=== PATIENT | male | born 1935 | race Caucasian/White ===

== ENCOUNTER 2018-12-02 06:25 | Inpatient (IN) | payer MEDICARE, OTHER ==
[~2018-12-02] VITALS: Ht 188 cm; Wt 108.8 kg
[~2018-12-02 06:25] MED LIST: ALBU90OI INH; AMOCLA875 PO; ASPI325 PO; ASPI81CH PO; ASPI81EC PO; BENAML20/5 PO; BREO ELLIPTA 11 EACH INH; CEPH500 PO; CIPR500 PO; CLOP75 PO; CRESTOR PO; Cilostazol50 MG PO; DICL25ER; DOXA4 PO; EPLE25 PO; FINA5 PO; FURO20 PO; FURO40 PO; HYDCHL12.5 PO; METF500 PO; METFORMIN 1000MG PO; METR500 PO; Metformin HCl1000 MG PO; NEBI10 PO; OXYC5 PO; RABE20 PO; ROSU10TA PO; SULTRIDS PO; TAMS.4ER PO; TIOT18 INH; TORSE20 PO; VALS80 PO; VALSARTAN-HCTZ1 EAC4 PO
[2018-12-02] MEDS ORDERED: LOSARTAN-HCTZ1 EAC2 PO (06:47)
[2018-12-02] MEDS ORDERED: ASPIRIN (06:48)
[2018-12-02 07:10] LABS: BASOPHILS ABSOLUTE AUTO 0.06 K/mm3 (0.00-0.23); BASOPHILS PERCENT AUTO 1 % (0-2); EOSINOPHILS ABSOLUTE AUTO 0.19 K/mm3 (0.00-0.68); EOSINOPHILS PERCENT AUTO 4 % (0-6); Hematocrit 39.6 % (37.0-53.0); Hemoglobin 13.2 g/dL (13.5-17.5); IMMATURE GRAN ABSOLUTE AUTO 0.01 K/mm3 (0.00-0.10); IMMATURE GRAN PERCENT AUTO 0 % (0-1); LYMPHOCYTES ABSOLUTE AUTO 1.15 K/mm3 (0.84-5.20); LYMPHOCYTES PERCENT AUTO 21 % (21-46); MONOCYTES PERCENT AUTO 15 % (4-13); Mean Corpuscular HGB 31.7 pg (26.0-34.0); Mean Corpuscular HGB Conc 33.3 g/dL (31.5-36.5); Mean Corpuscular Volume 95 fL (80-100); NEUTROPHILS ABSOLUTE AUTO 3.22 K/mm3 (1.96-9.15); NEUTROPHILS PERCENT AUTO 59 % (41-73); RDW Coefficient Variation 13.9 % (11.7-14.2); RDW Standard Deviation 48.7 fL (35.1-46.3); Red Blood Cell Count 4.16 M/mm3 (4.30-5.90); White Blood Cell Count 5.43 K/mm3 (4.00-11.30)
[2018-12-02 07:17] LABS: Mean Platelet Volume 9.8 fL (9.1-12.4); Platelet Count 167 K/mm3 (150-400)
[2018-12-02 08:04] LABS: Troponin I 0.153 ng/mL (0.000-0.040)
[2018-12-02 08:05] LABS: Albumin, Blood 3.6 g/dL (3.4-5.0); Albumin/Globulin Ratio 1.2 (0.8-1.8); Bilirubin, Total 0.4 mg/dL (0.1-1.0); Bun/Creatinine Ratio 21.7 (12.0-20.0); Calcium, Blood 8.9 mg/dL (8.5-10.1); Creatinine, Blood 1.38 mg/dL (0.60-1.20); Potassium, Blood 4.2 mmol/L (3.5-5.5); Total Protein, Blood 6.6 g/dL (6.4-8.2)
[2018-12-02] MEDS ORDERED: Bystolic10 MG PO (12:44)
[2018-12-02] MEDS ORDERED: Voltaren100 GM TOP (13:07)
--- NOTE | 2018-12-02 15:50 | NUR ---
PT ADMITTED PT ADMITTED AT 1520. PT IN STABLE CONDTION WITH VSS. PT ORIENTED TO ROOM & CALL LIGHT IN REACH. WILL CONTINUE TO MONITOR UNTIL TURNOVER IS COMPLETE.
--- NOTE | 2018-12-02 16:52 | NUR ---
SHIFT SUMMARY NO CHANGES IN ASSESSMENT AT THIS TIME. PT DENIES CP AT THIS TIME. PT SEEN BY DR. CUNNINGHAM. ANGIO SCHEDULED FOR TOMORROW MORNING. PT TO BE NPO AT MIDNIGHT. VSS. WILL CONTINUE TO MONITOR UNTIL TURNOVER IS COMPLETE.
--- NOTE | 2018-12-02 17:18 | NUR ---
COREG DOSE CHANGE DR. SUTHERLAND NOTIFIED THAT COREG DOSE OF 6.25 WAS GIVEN BEFORE THE NEW ORDER OF 3.125. STATED THAT THIS WAS OK & TO START THE NEW DOSEAGE IN THE MORNING. WILL CONTINUE TO MONITOR.
[2018-12-02 17:53] LABS: International Normalized Ratio 1.04
--- NOTE | 2018-12-03 05:23 | NUR ---
SUMMARY: 83 Y/O MALE RESTED COMFORTABLY ALL EVENING. HEPARIN GTT TURNED OFF AT [address] CUNNINGHAM. PT SCHEDULED FOR 0700 ANGIOGRAM TODAY. PT NPO SINCE MIDNIGHT. PT HAPPY AND COOPERATIVE. PT DENIES NAUSEA OR PAIN. PTS BED IN LOW POSITION, CALL LIGHT AT SIDE.
--- NOTE | 2018-12-03 07:03 | NUR ---
5046 PT DEPARTED UNIT VIA WHEELCHAIR WITH AT SIDE AND SURGICAL TEAM. PERSONAL ITEMS LEFT IN ROOM.
--- NOTE | 2018-12-03 07:28 | NUR ---
REPORT CALLED TO ICU REPORT CALLED TO ICU NURSE, LUCIA. LUCIA STATED NO FURTHER QUESTIONS ABOUT PT CARE. PT BELONGINGS WILL BE DELIVERED TO NEW ROOM. PT BRIGETTEY IN SINTER FEEDER.
[2018-12-03 09:01] LABS: Anion Gap 7 mmol/L (6-16); Blood Urea Nitrogen 26 mg/dL (8-24); Bun/Creatinine Ratio 24.1 (12.0-20.0); CO2, Blood 27 mmol/L (21-32); Calcium, Blood 8.6 mg/dL (8.5-10.1); Chloride, Blood 105 mmol/L (98-108); Creatinine, Blood 1.08 mg/dL (0.60-1.20); Glomerular Filtration Rate >60 (60-); Glucose, Blood 116 mg/dL (70-99); Sodium, Blood 139 mmol/L (136-145)
--- NOTE | 2018-12-03 09:46 | NUR ---
PATIENT LINEN ROOM HOUSEPERSON LIGHT, VERBALIZED NEED TO VOID, ASSISTED TO STAND AT SIDE OF BED, PATIENT NEEDED CONTINUOUS REMINDER TO NOT USE RIGHT HAND/ARM D/T T-BAND, PATIENT ABLE TO VOID IN URINAL WITH ASSIST, RETURNED TO BED AND REPOSITIONED, CALL LIGHT IN REACH, LUCIA RN, ATTENDING TO THIS PATIENT NOTIFIED.
--- NOTE | 2018-12-03 10:15 | NUR ---
0820 PT IN FROM [facility]. VS NOTED WITH HR 48+ AND SBP ELEVATED NOTED. PT CAUTIONED RE R TR SITED WHICH IS STABLE. PT DENIES CHEST PAIN OR SOB OR PAIN. PT A/O AND SIPS OF LIQUID W/O DISTRESS.
[2018-12-03] MEDS ORDERED: CARV3.125 PO (15:16)
[2018-12-03] MEDS ORDERED: AMLO5 PO (15:16)
[2018-12-03] MEDS ORDERED: LOSA50 PO (15:17)
--- NOTE | 2018-12-03 16:17 | NUR ---
1550 PT TR BAND WAS DEFLATED AT APPROX 1245 AND SITE STABLE. AT APPROX 1415 SITE WAS CLEANED AND OPSITE DSG APPLIED ALONG WITH WRIST BOARD. 1550 PT WAS DISCHARGED TO [facility] AFTER IV'S WERE D/C. TR BAND SITE STABILLITY CONFIRMED, INSTRUCTIONS GIVEN, ALL NEW RX'S CALLED TO [facility]. PT PERSONAL BELONGINGS GATHERED AND PT DENIES ANY PAIN OR DISTRESS. WAS ALSO GIVEN INSTRUCTIONS.
--- NOTE | 2018-12-03 17:39 | NUR ---
Spiritual Care inital visit: I met with Barry and his at bedside. He made little jokes and told me he was happy to be "getting outta here." His appears to be a good support. I spoke to them about the purpose and benefits of having an Advanced Directive on file. Afterwards, his admitted this would be a useful tool for squelching possible disagreements between their adult children if/when either of them near end-of-life. She took the information packet and plans on completing this once they get home. Prayer for continued health provided at bedside. Barry is being discharged this afternoon.
== END 2018-12-03 15:50 | disposition home or self-care (01) | DRG 282 ==
LOC: ER 06:25 → MEDS 06:26 → ERHOLD 06:26 → MEDS 15:15 → ICUW 15:17 → MEDS 22:58 → ICUW 12-03 07:17
PROVIDERS: Emergency Medicine; Internal Medicine Cardiovascular Disease; ADMIT Hospitalist
PROC: B2111ZZ Fluoroscopy of Multiple Coronary Arteries using Low Osmolar Contrast (ICD-10-PCS; principal; 2018-12-03)
PROC: 4A023N7 Measurement of Cardiac Sampling and Pressure, Left Heart, Percutaneous Approach (ICD-10-PCS; 2018-12-03)
DX: I21.4 Non-ST elevation (NSTEMI) myocardial infarction (principal); J44.9 Chronic obstructive pulmonary disease, unspecified; E11.51 Type 2 diabetes mellitus with diabetic peripheral angiopathy without gangrene; N40.0 Benign prostatic hyperplasia without lower urinary tract symptoms; I10 Essential (primary) hypertension; Z79.82 Long term (current) use of aspirin; Z79.84 Long term (current) use of oral hypoglycemic drugs; Z95.5 Presence of coronary angioplasty implant and graft; K21.9 Gastro-esophageal reflux disease without esophagitis; I27.20 Pulmonary hypertension, unspecified; I44.0 Atrioventricular block, first degree
CPT/HCPCS: 36415; 71046; 80048; 80053; 82947; 83880; 84484; 85025; 85610; 85730; 93005; 93010; 93306; 93458; 93571; 96372; 99152; 99153; 99285-25; C1769; C1887; C1894; G0378; J0360; J1644; J1650; J2250; J3010; J7030; Q9967

== ENCOUNTER 2019-06-27 13:08 | Inpatient (IN) | payer MEDICARE, OTHER ==
[~2019-06-27] VITALS: Ht 188 cm; Wt 112.7 kg
[~2019-06-27 13:08] MED LIST changes: -ALBU90OI INH; +ASPIRIN; +Bystolic10 MG PO; +CARV3.125 PO; -CLOP75 PO; -Cilostazol50 MG PO; -EPLE25 PO; +LOSARTAN-HCTZ1 EAC2 PO; -Metformin HCl1000 MG PO; +Voltaren100 GM TOP
[2019-06-27 14:24] LABS: BASOPHILS ABSOLUTE AUTO 0.06 K/mm3 (0.00-0.23); BASOPHILS PERCENT AUTO 0 % (0-2); EOSINOPHILS PERCENT AUTO 0 % (0-6); Hematocrit 37.3 % (37.0-53.0); Hemoglobin 12.6 g/dL (13.5-17.5); IMMATURE GRAN ABSOLUTE AUTO 0.27 K/mm3 (0.00-0.10); IMMATURE GRAN PERCENT AUTO 1 % (0-1); LYMPHOCYTES ABSOLUTE AUTO 0.46 K/mm3 (0.84-5.20); LYMPHOCYTES PERCENT AUTO 2 % (21-46); MONOCYTES ABSOLUTE AUTO 2.27 K/mm3 (0.16-1.47); MONOCYTES PERCENT AUTO 11 % (4-13); Mean Corpuscular HGB 31.2 pg (26.0-34.0); Mean Corpuscular HGB Conc 33.8 g/dL (31.5-36.5); Mean Corpuscular Volume 92 fL (80-100); Mean Platelet Volume 9.1 fL (9.1-12.4); NEUTROPHILS ABSOLUTE AUTO 17.85 K/mm3 (1.96-9.15); NEUTROPHILS PERCENT AUTO 85 % (41-73); Platelet Count 190 K/mm3 (150-400); RDW Coefficient Variation 13.8 % (11.7-14.2); RDW Standard Deviation 46.8 fL (35.1-46.3); Red Blood Cell Count 4.04 M/mm3 (4.30-5.90); White Blood Cell Count 20.91 K/mm3 (4.00-11.30)
[2019-06-27 14:48] LABS: Albumin, Blood 3.7 g/dL (3.4-5.0); Albumin/Globulin Ratio 1.1 (0.8-1.8); Bilirubin, Total 1.3 mg/dL (0.1-1.0); Calcium, Blood 8.7 mg/dL (8.5-10.1); Creatinine, Blood 1.27 mg/dL (0.60-1.20); Globulin, Blood 3.5 g/dL (2.2-4.0); Potassium, Blood 3.3 mmol/L (3.5-5.5); Total Protein, Blood 7.2 g/dL (6.4-8.2)
[2019-06-27 15:10] LABS: Source, Urine Clean Catch
[2019-06-27 15:18] LABS: Bilirubin, Urine Neg (Neg); Blood, Urine 4+ (Neg); Glucose Qualitative, Urine Neg (Neg); Ketones, Urine 2+ (Neg); Leukocyte Esterase, Urine 3+ (Neg); Nitrite, Urine Pos (Neg); Protein, Urine 2+ (Neg); Urobilinogen, Urine NORM (Normal)
[2019-06-27 15:28] LABS: Appearance, Urine Hazy (Clear); Color, Urine Yellow (P-Yellow)
[2019-06-27 15:30] LABS: White Blood Cells, Urine 25-50 /hpf (0-5)
[2019-06-27 15:31] LABS: Bacteria Many /hpf; Squamous Epithelial Cells Few /hpf (Few)
[2019-06-27] MEDS ORDERED: RABE20 PO (16:21)
[2019-06-27] MEDS ORDERED: EPLE25 PO (16:21)
[2019-06-27] MEDS ORDERED: ROSU10TA PO (16:21)
[2019-06-27] MEDS ORDERED: CLOP75 PO (16:22)
[2019-06-27] MEDS ORDERED: AMLO5 PO (16:22)
[2019-06-27] MEDS ORDERED: CHLO25B PO (16:23)
[2019-06-27] MEDS ORDERED: TOPROL XL25 MG PO (16:23)
[2019-06-27] MEDS ORDERED: Doxazosin Mesyla4 MG PO (16:24)
[2019-06-27] MEDS ORDERED: ALBU90OI INH (16:25)
[2019-06-27] MEDS ORDERED: METF500C PO (16:25)
[2019-06-27] MEDS ORDERED: LOSA50 PO (16:26)
[2019-06-27] MEDS ORDERED: Cilostazol50 MG PO (16:26)
[2019-06-27] MEDS ORDERED: Aspir 8181 MG PO (16:28)
--- NOTE | 2019-06-28 04:11 | NUR ---
SHIFT SUMMARY GULSHAN GOT HERE LAST NIGHT AFTER GOING TO THE ER YESTERDAY. HE WAS DIAGNOSED WITH SEPSIS. HE CAME UP HERE LAST NIGHT WITH A FEVER AND CHILLS. HIS FEVER HAD GOTTEN TO 101 DEGREES FAHRENHEIT THEN FLUCTUATED BETWEEN 99-101 DEGREES. HIS CHILLS WERE VERY PRONOUNCED AND HE KEPT ASKING FOR WARMED BLANKETS. HE RECEIVED 2 TYLENOL (650 MG) AND HIS FEVER WENT DOWN TO 97.8. HE IS MUCH MORE COMFORTABLE NOW AND APPEARS TO BE SLEEPING. HE WEARS A CPAP AND HAD TO BORROW ONE FROM [facility] HE LEFT HIS AT HOME. HE HAS BEEN GETTING IV FLUIDS.
[2019-06-28 05:17] LABS: BASOPHILS ABSOLUTE AUTO 0.05 K/mm3 (0.00-0.23); BASOPHILS PERCENT AUTO 0 % (0-2); EOSINOPHILS PERCENT AUTO 0 % (0-6); Hematocrit 34.4 % (37.0-53.0); Hemoglobin 11.5 g/dL (13.5-17.5); IMMATURE GRAN ABSOLUTE AUTO 0.36 K/mm3 (0.00-0.10); IMMATURE GRAN PERCENT AUTO 2 % (0-1); LYMPHOCYTES ABSOLUTE AUTO 0.68 K/mm3 (0.84-5.20); LYMPHOCYTES PERCENT AUTO 3 % (21-46); MONOCYTES ABSOLUTE AUTO 1.93 K/mm3 (0.16-1.47); MONOCYTES PERCENT AUTO 10 % (4-13); Mean Corpuscular HGB 31.1 pg (26.0-34.0); Mean Corpuscular HGB Conc 33.4 g/dL (31.5-36.5); Mean Corpuscular Volume 93 fL (80-100); Mean Platelet Volume 9.6 fL (9.1-12.4); NEUTROPHILS ABSOLUTE AUTO 16.74 K/mm3 (1.96-9.15); NEUTROPHILS PERCENT AUTO 85 % (41-73); Platelet Count 172 K/mm3 (150-400); RDW Coefficient Variation 13.9 % (11.7-14.2); RDW Standard Deviation 47.5 fL (35.1-46.3); White Blood Cell Count 19.76 K/mm3 (4.00-11.30)
[2019-06-28 05:58] LABS: Anion Gap 10 mmol/L (6-16); Blood Urea Nitrogen 20 mg/dL (8-24); Bun/Creatinine Ratio 17.9 (12.0-20.0); CO2, Blood 25 mmol/L (21-32); Calcium, Blood 8.4 mg/dL (8.5-10.1); Chloride, Blood 101 mmol/L (98-108); Creatinine, Blood 1.12 mg/dL (0.60-1.20); Glomerular Filtration Rate >60 (60-); Glucose, Blood 123 mg/dL (70-99); Potassium, Blood 3.3 mmol/L (3.5-5.5); Sodium, Blood 136 mmol/L (136-145)
--- NOTE | 2019-06-28 17:55 | NUR ---
SHIFT SUMMARY PATIENT IS PLEASANT, ALERT AND ORIENTED BUT HARD OF HEARING. NO ACUTE CONCERNS AT THIS TIME. HE IS CONTINUING IV ANTIBIOTIC THERAPY UNTIL SUNDAY PER DR. CARTAGENA. PATIENT'S FAMILY DID VISIT TODAY. NO ACUTE CONCERNS AT THIS TIME FROM THE PATIENT.
[2019-06-29 05:01] LABS: BASOPHILS ABSOLUTE AUTO 0.04 K/mm3 (0.00-0.23); BASOPHILS PERCENT AUTO 0 % (0-2); EOSINOPHILS ABSOLUTE AUTO 0.06 K/mm3 (0.00-0.68); EOSINOPHILS PERCENT AUTO 0 % (0-6); Hematocrit 32.5 % (37.0-53.0); Hemoglobin 10.9 g/dL (13.5-17.5); IMMATURE GRAN ABSOLUTE AUTO 0.11 K/mm3 (0.00-0.10); IMMATURE GRAN PERCENT AUTO 1 % (0-1); LYMPHOCYTES ABSOLUTE AUTO 0.78 K/mm3 (0.84-5.20); LYMPHOCYTES PERCENT AUTO 5 % (21-46); MONOCYTES ABSOLUTE AUTO 1.41 K/mm3 (0.16-1.47); MONOCYTES PERCENT AUTO 10 % (4-13); Mean Corpuscular HGB Conc 33.5 g/dL (31.5-36.5); Mean Corpuscular Volume 92 fL (80-100); Mean Platelet Volume 9.5 fL (9.1-12.4); NEUTROPHILS ABSOLUTE AUTO 12.21 K/mm3 (1.96-9.15); NEUTROPHILS PERCENT AUTO 84 % (41-73); Platelet Count 160 K/mm3 (150-400); RDW Coefficient Variation 13.8 % (11.7-14.2); RDW Standard Deviation 46.9 fL (35.1-46.3); Red Blood Cell Count 3.52 M/mm3 (4.30-5.90); White Blood Cell Count 14.61 K/mm3 (4.00-11.30)
--- NOTE | 2019-06-29 05:17 | NUR ---
SHIFT SUMMARY PATIENT VERY PLEASANT OVER NIGHT. HE SLEPT THE MAJORITY OF THE TIME. ELECTRO MECHANICAL SOLAR TECHNICIAN REPORTED THAT PATIENT'S HEART RATE WAS HAVING LARGE FLUCTUATIONS WHEN CONNECTED TO THE PULSE OXIMETER. NILSA FLOWERS LISTENED TO HIS HEART AND REPORTED HEARING THE SAME. CHARGE NURSE ALERTED OF THIS EPISODE. IVS IN BOTH ARMS PATENT AND FLUSHED. BED IN LOWEST POSITION WITH WHEELS LOCKED. CALL LIGHT AND BELONGINGS WITHIN REACH. REPORT GIVEN TO ONCOMING RN.
[2019-06-29 05:20] LABS: Anion Gap 9 mmol/L (6-16); Blood Urea Nitrogen 20 mg/dL (8-24); Bun/Creatinine Ratio 17.2 (12.0-20.0); CO2, Blood 25 mmol/L (21-32); Calcium, Blood 8.3 mg/dL (8.5-10.1); Chloride, Blood 103 mmol/L (98-108); Creatinine, Blood 1.16 mg/dL (0.60-1.20); Glomerular Filtration Rate >60 (60-); Glucose, Blood 114 mg/dL (70-99); Sodium, Blood 137 mmol/L (136-145)
--- NOTE | 2019-06-29 18:31 | NUR ---
SHIFT SUMMARY PATIENT IS PLEASANT, ALERT AND ORIENTED. INDEPENDENT AND COOPERATIVE. NO ACUTE CONCERNS AT THIS TIME. PATIENT IS POSSIBLE TO DISCAHRGE TOMORROW ACCORDING TO THE PATIENT AND THE DOCTOR. CURRENTLY HE IS LYING IN BED. HE HAD A SHOWER TODAY.
[2019-06-30 04:53] LABS: BASOPHILS ABSOLUTE AUTO 0.04 K/mm3 (0.00-0.23); BASOPHILS PERCENT AUTO 1 % (0-2); EOSINOPHILS ABSOLUTE AUTO 0.14 K/mm3 (0.00-0.68); EOSINOPHILS PERCENT AUTO 2 % (0-6); Hematocrit 31.9 % (37.0-53.0); Hemoglobin 10.8 g/dL (13.5-17.5); IMMATURE GRAN ABSOLUTE AUTO 0.03 K/mm3 (0.00-0.10); IMMATURE GRAN PERCENT AUTO 0 % (0-1); LYMPHOCYTES ABSOLUTE AUTO 0.79 K/mm3 (0.84-5.20); LYMPHOCYTES PERCENT AUTO 10 % (21-46); MONOCYTES PERCENT AUTO 14 % (4-13); Mean Corpuscular HGB 31.7 pg (26.0-34.0); Mean Corpuscular HGB Conc 33.9 g/dL (31.5-36.5); Mean Corpuscular Volume 94 fL (80-100); Mean Platelet Volume 9.6 fL (9.1-12.4); NEUTROPHILS ABSOLUTE AUTO 5.95 K/mm3 (1.96-9.15); NEUTROPHILS PERCENT AUTO 74 % (41-73); Platelet Count 193 K/mm3 (150-400); RDW Coefficient Variation 13.6 % (11.7-14.2); RDW Standard Deviation 46.9 fL (35.1-46.3); Red Blood Cell Count 3.41 M/mm3 (4.30-5.90); White Blood Cell Count 8.05 K/mm3 (4.00-11.30)
[2019-06-30 05:10] LABS: Anion Gap 9 mmol/L (6-16); Blood Urea Nitrogen 19 mg/dL (8-24); Bun/Creatinine Ratio 17.8 (12.0-20.0); CO2, Blood 26 mmol/L (21-32); Calcium, Blood 8.6 mg/dL (8.5-10.1); Chloride, Blood 103 mmol/L (98-108); Creatinine, Blood 1.07 mg/dL (0.60-1.20); Glomerular Filtration Rate >60 (60-); Glucose, Blood 117 mg/dL (70-99); Potassium, Blood 3.1 mmol/L (3.5-5.5); Sodium, Blood 138 mmol/L (136-145)
--- NOTE | 2019-06-30 05:42 | NUR ---
SHIFT SUMMARY PATIENT HAD NO COMPLAINTS OF PAIN OVERNIGHT. HIS URINE IS STILL SLIGHTLY PINK TINGED AND IS EXPERIENCING SOME FREQUENCY. HE IS SUCCESSFULLY USING HIS URINAL TO MINIMIZE THE AMOUNT OF TIMES HE NEEDS TO GET UP TO THE BATHROOM. HE IS SLEEPING WITH HIS CPAP ON AND WAS ABLE TO GET A GOOD NIGHT'S REST. IVS IN BOTH ARMS PATENT AND FLUSHED. BED IN LOWEST POSITION WITH WHEELS LOCKED. CALL LIGHT AND BELONGINGS WITHIN REACH. REPORT GIVEN TO ONCGROVER HENLEY.
[2019-06-30] MEDS ORDERED: Pyridium100 MG PO (12:04)
[2019-06-30] MEDS ORDERED: CIPR500 PO (12:05)
--- NOTE | 2019-06-30 14:46 | NUR ---
DISCHARGE SUMMARY Barry left with his and son. PIVs removed, paperwork gone over, education on antibiotics given. meds faxed to [facility]. pt endorsed dysuria but stated that he felt much much better and is ready to go home. independent in room. wheeled out with wheelchair. follow up appt with his pcp was made for him, he is aware of date and time
== END 2019-06-30 13:13 | disposition home or self-care (01) | DRG 872 ==
LOC: ER 13:08 → MEDS 16:15 → ENPENDDIS 06-30 11:07 → MEDS 06-30 13:13
PROVIDERS: Physician Assistant; ADMIT Hospitalist
DX: A41.51 Sepsis due to Escherichia coli [E. coli] (principal); N39.0 Urinary tract infection, site not specified; N41.0 Acute prostatitis; J44.9 Chronic obstructive pulmonary disease, unspecified; I25.10 Atherosclerotic heart disease of native coronary artery without angina pectoris; I10 Essential (primary) hypertension; E87.6 Hypokalemia; E11.51 Type 2 diabetes mellitus with diabetic peripheral angiopathy without gangrene; I27.20 Pulmonary hypertension, unspecified; G47.30 Sleep apnea, unspecified; B96.89 Other specified bacterial agents as the cause of diseases classified elsewhere; K21.9 Gastro-esophageal reflux disease without esophagitis; Z79.84 Long term (current) use of oral hypoglycemic drugs; Z79.02 Long term (current) use of antithrombotics/antiplatelets; Z79.82 Long term (current) use of aspirin; Z79.899 Other long term (current) drug therapy
CPT/HCPCS: 36415; 51798; 74176; 80048; 80053; 81001; 83605; 83880; 85025; 87040; 87077; 87086; 87186; 93005; 93010; 94660; 96361; 96365; 97162; 99285-25; A9270; J0696; J1650; J3480; J7030; J7120

== ENCOUNTER → 2019-12-12 | Outpatient (CLI) | payer MEDICARE, OTHER ==
[~2019-12-12] MED LIST changes: +ALBU90OI INH; +AMLO5 PO; +Aspir 8181 MG PO; +CHLO25B PO; +CLOP75 PO; +Cilostazol50 MG PO; +Doxazosin Mesyla4 MG PO; +EPLE25 PO; +LOSA50 PO; +METF500C PO; +Pyridium100 MG PO; +TOPROL XL25 MG PO
[2019-12-12 15:23] LABS: BASOPHILS PERCENT AUTO 2 % (0-2); EOSINOPHILS ABSOLUTE AUTO 0.18 K/mm3 (0.00-0.68); EOSINOPHILS PERCENT AUTO 3 % (0-6); Hematocrit 43.2 % (37.0-53.0); IMMATURE GRAN ABSOLUTE AUTO 0.01 K/mm3 (0.00-0.10); IMMATURE GRAN PERCENT AUTO 0 % (0-1); LYMPHOCYTES ABSOLUTE AUTO 1.05 K/mm3 (0.84-5.20); LYMPHOCYTES PERCENT AUTO 17 % (21-46); MONOCYTES ABSOLUTE AUTO 0.78 K/mm3 (0.16-1.47); MONOCYTES PERCENT AUTO 13 % (4-13); Mean Corpuscular HGB 29.7 pg (26.0-34.0); Mean Corpuscular HGB Conc 32.4 g/dL (31.5-36.5); Mean Corpuscular Volume 92 fL (80-100); Mean Platelet Volume 9.7 fL (9.1-12.4); NEUTROPHILS ABSOLUTE AUTO 4.07 K/mm3 (1.96-9.15); NEUTROPHILS PERCENT AUTO 66 % (41-73); Platelet Count 221 K/mm3 (150-400); RDW Coefficient Variation 14.9 % (11.7-14.2); RDW Standard Deviation 50.9 fL (35.1-46.3); Red Blood Cell Count 4.71 M/mm3 (4.30-5.90); White Blood Cell Count 6.19 K/mm3 (4.00-11.30)
[2019-12-12 16:05] LABS: Alanine Aminotransfer (ALT/SGP 28 U/L (12-78); Albumin, Blood 3.9 g/dL (3.4-5.0); Albumin/Globulin Ratio 1.1 (0.8-1.8); Alk Phos 96 U/L (50-136); Anion Gap 7 mmol/L (6-16); Aspartate Aminotrans (AST/SGOT 27 U/L (12-37); Bilirubin, Total 0.5 mg/dL (0.1-1.0); Blood Urea Nitrogen 19 mg/dL (8-24); CO2, Blood 29 mmol/L (21-32); Calcium, Blood 9.1 mg/dL (8.5-10.1); Chloride, Blood 102 mmol/L (98-108); Creatinine, Blood 1.19 mg/dL (0.60-1.20); Globulin, Blood 3.6 g/dL (2.2-4.0); Glomerular Filtration Rate >60 (60-); Glucose, Blood 135 mg/dL (70-99); Potassium, Blood 4.2 mmol/L (3.5-5.5); Sodium, Blood 138 mmol/L (136-145); Total Protein, Blood 7.5 g/dL (6.4-8.2)
== END | disposition home or self-care (01) ==
PROVIDERS: Family Medicine
DX: I10 Essential (primary) hypertension (principal)

== ENCOUNTER 2020-01-08 08:01 | Day surgery (SDC) | payer MEDICARE, OTHER ==
[~2020-01-08] VITALS: Ht 185.4 cm; Wt 104.0 kg
[~2020-01-08 08:01] MED LIST changes: +ACET500 PO; +Primidone50 MG PO
[2020-01-08 09:30] LABS: BASOPHILS ABSOLUTE AUTO 0.08 K/mm3 (0.00-0.23); BASOPHILS PERCENT AUTO 2 % (0-2); EOSINOPHILS ABSOLUTE AUTO 0.17 K/mm3 (0.00-0.68); EOSINOPHILS PERCENT AUTO 3 % (0-6); Hematocrit 41.7 % (37.0-53.0); Hemoglobin 13.8 g/dL (13.5-17.5); IMMATURE GRAN ABSOLUTE AUTO 0.02 K/mm3 (0.00-0.10); IMMATURE GRAN PERCENT AUTO 0 % (0-1); LYMPHOCYTES ABSOLUTE AUTO 1.02 K/mm3 (0.84-5.20); LYMPHOCYTES PERCENT AUTO 19 % (21-46); MONOCYTES ABSOLUTE AUTO 0.73 K/mm3 (0.16-1.47); MONOCYTES PERCENT AUTO 13 % (4-13); Mean Corpuscular HGB 30.7 pg (26.0-34.0); Mean Corpuscular HGB Conc 33.1 g/dL (31.5-36.5); Mean Corpuscular Volume 93 fL (80-100); Mean Platelet Volume 9.3 fL (9.1-12.4); NEUTROPHILS ABSOLUTE AUTO 3.46 K/mm3 (1.96-9.15); NEUTROPHILS PERCENT AUTO 63 % (41-73); Platelet Count 221 K/mm3 (150-400); RDW Coefficient Variation 15.8 % (11.7-14.2); RDW Standard Deviation 53.4 fL (35.1-46.3); White Blood Cell Count 5.48 K/mm3 (4.00-11.30)
[2020-01-08 09:39] LABS: Anion Gap 7 mmol/L (6-16); Blood Urea Nitrogen 18 mg/dL (8-24); Bun/Creatinine Ratio 15.4 (12.0-20.0); CO2, Blood 26 mmol/L (21-32); Calcium, Blood 8.6 mg/dL (8.5-10.1); Chloride, Blood 104 mmol/L (98-108); Creatinine, Blood 1.17 mg/dL (0.60-1.20); Glomerular Filtration Rate >60 (60-); Glucose, Blood 135 mg/dL (70-99); International Normalized Ratio 0.98; Potassium, Blood 3.9 mmol/L (3.5-5.5); Prothrombin Time Results 10.5 Sec (9.7-11.5); Sodium, Blood 137 mmol/L (136-145)
--- NOTE | 2020-01-08 16:41 | NUR ---
DISCHARGE PT REMAINED A&OX3 AND DENIED ANY PAIN DURING RECOVERY. RIGHT GROIN SITE CDI-NO HEMATOMA NOTED. PT ABLE TO DRESS SELF AND ABULATE TO RESTROOM INDEPENDATNLY. IV DC'D WITH CANULA IN TACT. DISCHARGE PAPERWORK GONE OVER WITH PT. PT VERBALLY STATED THE UNDERSTANDING OF THE DISCHARGE EDUCATION AND DENIED ANY QUESTIONS AT THIS TIME. PT WHEELD OUT BY KAYLENE Faustin RN.
== END 2020-01-08 16:57 | disposition home or self-care (01) ==
LOC: MHTC 08:01
PROVIDERS: Radiology Diagnostic Radiology
DX: I70.212 Atherosclerosis of native arteries of extremities with intermittent claudication, left leg (principal); E11.51 Type 2 diabetes mellitus with diabetic peripheral angiopathy without gangrene; I10 Essential (primary) hypertension; J44.9 Chronic obstructive pulmonary disease, unspecified; K21.9 Gastro-esophageal reflux disease without esophagitis; E11.42 Type 2 diabetes mellitus with diabetic polyneuropathy; Z88.7 Allergy status to serum and vaccine; Z88.8 Allergy status to other drugs, medicaments and biological substances; Z79.02 Long term (current) use of antithrombotics/antiplatelets; Z79.899 Other long term (current) drug therapy; Z79.82 Long term (current) use of aspirin; Z79.84 Long term (current) use of oral hypoglycemic drugs
CPT/HCPCS: 37224; 37228; 75625; 75716; 75774; 80048; 85025; 85347; 85610; 99152; 99153; C1725; C1757; C1760; C1769; C1887; C1894; C2623; J1644; J2250; J3010; J7030; Q9967; U0002

== ENCOUNTER → 2021-06-09 | Outpatient (CLI) | payer MEDICARE, OTHER ==
[~2021-06-09] MED LIST changes: +Cardura8 MG PO; -Doxazosin Mesyla4 MG PO; +GABA100 PO; +METFORMIN HCL500 M3 PO; +Potassium Chlo20 ME1 PO
== END | disposition home or self-care (01) ==
LOC: LAB SHORT 14:53 → LAB 14:53
DX: L57.0 Actinic keratosis (principal)
CPT/HCPCS: 88305

== ENCOUNTER 2022-04-05 08:30 | Day surgery (SDC) | payer MEDICARE, OTHER ==
[~2022-04-05] VITALS: Ht 188 cm; Wt 102.0 kg
[~2022-04-05 08:30] MED LIST changes: +CATAPRES-TTS 11 EAC1 TOP
--- NOTE | 2022-04-05 11:20 | NUR ---
PT BACK TO RECOVERY VIA BED AFTER PROCEDURE. LEFT GROIN SITE SOFT AND NON-TENDER. TEGADERM DRESSING IN PLACE. REPORT FROM LORY SANDERSON.
--- NOTE | 2022-04-05 11:25 | NUR ---
DR NEWMAN AT BEDSIDE SPEAKING WITH PT AND FAMILY ABOUT PROCEDURE RESULTS AND PLAN OF CARE
--- NOTE | 2022-04-05 12:10 | NUR ---
L FEM ACCESS SITE IS STABLE WITH NO BLEEDING, OOZING OR HEMATOMA NOTED. PT SAT UP TO 45 DEGREES IN BED. VSS. FAMILY REMAINS AT BEDSIDE. WILL CONTINUE TO MONITOR.
--- NOTE | 2022-04-05 13:00 | NUR ---
PT ABLE TO AMBULATE TO THE RESTROOM WITHOUT DIFFICULTY. LEFT GROIN SITE REMAINS SOFT AND NON-TENDER. NO BLEEDING OR SWELLING NOTED.
--- NOTE | 2022-04-05 13:41 | NUR ---
DISCHARGE PT DRESSED SELF WITH NO COMPLICATIONS. L FEM ACCESS SITE IS SOFT WITH NO BLEEDING, OOZING OR HEMATOMA NOTED. PT DENIES ANY PAIN. VSS. IV DCD WITH CATH IN TACT. PT AND FAMILY STATE THEIR UNDERSTANDING OF DC AND SITE CARE INSTRUCTIONS AND DENY ANY QUESTIONS OR CONCERNS UPON DC. PT TAKEN TO EXIT VIA WHEELCHAIR WHERE SON WAS WAITING WITH VEHICLE.
== END 2022-04-05 13:30 | disposition home or self-care (01) ==
LOC: MHTC 08:30
DX: E11.51 Type 2 diabetes mellitus with diabetic peripheral angiopathy without gangrene (principal); I70.213 Atherosclerosis of native arteries of extremities with intermittent claudication, bilateral legs; I25.10 Atherosclerotic heart disease of native coronary artery without angina pectoris; Z86.16 Personal history of COVID-19; J44.9 Chronic obstructive pulmonary disease, unspecified; K21.9 Gastro-esophageal reflux disease without esophagitis; I10 Essential (primary) hypertension; E11.40 Type 2 diabetes mellitus with diabetic neuropathy, unspecified; Z79.82 Long term (current) use of aspirin; Z79.84 Long term (current) use of oral hypoglycemic drugs; Z88.8 Allergy status to other drugs, medicaments and biological substances
CPT/HCPCS: 76937; 99152; 99153; C1725; C1760; C1769; C1887; C1894; C2623; J1644; J7030; J7040; Q9967

== ENCOUNTER 2022-04-10 20:30 | Emergency (ER) | payer MEDICARE, OTHER ==
[~2022-04-10] VITALS: Ht 188 cm; Wt 103.0 kg
== END 2022-04-10 22:52 | disposition home or self-care (01) ==
LOC: ER 20:30
DX: R13.10 Dysphagia, unspecified (principal); I10 Essential (primary) hypertension; E11.9 Type 2 diabetes mellitus without complications; Z79.899 Other long term (current) drug therapy; Z79.82 Long term (current) use of aspirin; Z79.84 Long term (current) use of oral hypoglycemic drugs
CPT/HCPCS: 82947

== ENCOUNTER 2022-04-11 10:53 | Emergency (ER) | payer MEDICARE, OTHER ==
[~2022-04-11] VITALS: Ht 188 cm; Wt 103.0 kg
== END 2022-04-11 15:46 | disposition home or self-care (01) ==
LOC: ER 10:53
DX: R13.10 Dysphagia, unspecified (principal); R11.10 Vomiting, unspecified; I10 Essential (primary) hypertension; E11.9 Type 2 diabetes mellitus without complications; J44.9 Chronic obstructive pulmonary disease, unspecified; Z79.899 Other long term (current) drug therapy; Z79.84 Long term (current) use of oral hypoglycemic drugs; Z79.02 Long term (current) use of antithrombotics/antiplatelets; Z79.82 Long term (current) use of aspirin; Z88.7 Allergy status to serum and vaccine; Z88.8 Allergy status to other drugs, medicaments and biological substances; Z91.09 Other allergy status, other than to drugs and biological substances
CPT/HCPCS: 99283

== ENCOUNTER 2022-06-27 06:56 | Day surgery (SDC) | payer MEDICARE, OTHER ==
[~2022-06-27] VITALS: Ht 188 cm; Wt 104.5 kg
[2022-06-27] MEDS ORDERED: Amlodipine Bes2.5 MG PO (07:39)
[2022-06-27] MEDS ORDERED: ELIQUIS2.5 MG PO (11:49)
--- NOTE | 2022-06-27 12:03 | NUR ---
PT HR DROPPING INTO THE 30"S, 33-34. DR LOPEZ NOTIFIED, PT ASYMPTOMATIC WITH LOW HR.
--- NOTE | 2022-06-27 12:42 | NUR ---
PT HR UP TO THE UPPER 40'S-50'S. EATING LUNCH AT THIS TIME. STATES HE FEELS FINE.
--- NOTE | 2022-06-27 14:11 | NUR ---
PT RESTING AND HR BACK DOWN INTO THE 30'S-40'S. PT ASYMPTOMATIC. DR HENSLEY
--- NOTE | 2022-06-27 15:01 | NUR ---
DR LOPEZ IN TO SEE PT, PT OKAYED TO BE DISCHARGED HOME WITH VERBAL INSTRUCTIONS GIVEN TO GO TO THE ER IF LIGHTHEADED, CP, OR DIZZINESS.
--- NOTE | 2022-06-27 15:03 | NUR ---
PT GETTING DRESSED PER SELF. DISCHARGE REVIEWED WITH AND WITH PT. BOTH VERBALIZE UNDERSTANDING OF INSTRUCTIONS. SALINE LOCK REMOVED WITH CATHETER INTACT.
--- NOTE | 2022-06-27 15:27 | NUR ---
PT DISCHARGED PER W/C WITH ONE STAFF.
== END 2022-06-27 15:20 | disposition home or self-care (01) ==
LOC: MHTC 06:56
PROC: 04FN3ZZ Fragmentation of Left Popliteal Artery, Percutaneous Approach (ICD-10-PCS; principal; 2022-06-27)
PROC: 04FQ3ZZ Fragmentation of Left Anterior Tibial Artery, Percutaneous Approach (ICD-10-PCS; principal; 2022-06-27)
PROC: 047S3ZZ Dilation of Left Posterior Tibial Artery, Percutaneous Approach (ICD-10-PCS; principal; 2022-06-27)
PROC: 047L3Z1 Dilation of Left Femoral Artery using Drug-Coated Balloon, Percutaneous Approach (ICD-10-PCS; principal; 2022-06-27)
PROC: 047Q3ZZ Dilation of Left Anterior Tibial Artery, Percutaneous Approach (ICD-10-PCS; principal; 2022-06-27)
PROC: 047F3ZZ Dilation of Left Internal Iliac Artery, Percutaneous Approach (ICD-10-PCS; principal; 2022-06-27)
PROC: 04FL3ZZ Fragmentation of Left Femoral Artery, Percutaneous Approach (ICD-10-PCS; principal; 2022-06-27)
DX: I70.213 Atherosclerosis of native arteries of extremities with intermittent claudication, bilateral legs (principal); J44.9 Chronic obstructive pulmonary disease, unspecified; E11.40 Type 2 diabetes mellitus with diabetic neuropathy, unspecified; I10 Essential (primary) hypertension; I25.10 Atherosclerotic heart disease of native coronary artery without angina pectoris
CPT/HCPCS: 37220; 37224; 37228; 37232; 37252; 37253; 75716; 75774; 76937; 85347; 99152; 99153; C1725; C1753; C1760; C1769; C1887; C1894; C2623; C9764; C9772; J1644; J7030; J7040; Q9967

== ENCOUNTER → 2023-01-29 | Outpatient (CLI) | payer MEDICARE, OTHER ==
[~2023-01-29] MED LIST changes: +ALBU2.5V5; +ALBU2.5V5 INH; +Amlodipine Bes2.5 MG PO; +CEFP200 PO; +ELIQUIS2.5 MG PO; +FLUTICASONE PRO16 GM; +Flonase 0.05% N16 GM; +POTCHL20ER PO
[2023-01-29 16:57] LABS: Protein, Urine Quantitative 7.3 mg/dL (0.0-11.9)
[2023-01-29 17:00] LABS: Creatinine Urine 29.3 mg/dL (27.00-270.00); Microalbumin, Urine Quant. 5.49 mg/L (0.000-20.000)
== END | disposition home or self-care (01) ==
LOC: LAB 11:42 → LAB SHORT 11:42
PROVIDERS: Internal Medicine Nephrology
DX: N18.30 Chronic kidney disease, stage 3 unspecified (principal); D63.1 Anemia in chronic kidney disease; E78.00 Pure hypercholesterolemia, unspecified; E55.9 Vitamin D deficiency, unspecified; N25.81 Secondary hyperparathyroidism of renal origin; R76.9 Abnormal immunological finding in serum, unspecified; R94.5 Abnormal results of liver function studies; R94.6 Abnormal results of thyroid function studies; D51.8 Other vitamin B12 deficiency anemias; D52.8 Other folate deficiency anemias; D50.8 Other iron deficiency anemias
CPT/HCPCS: 81050; 82043; 82570; 84156

== ENCOUNTER 2023-11-01 09:05 | Day surgery (SDC) | payer MEDICARE, OTHER ==
[~2023-11-01] VITALS: Ht 185.4 cm; Wt 110.0 kg
[~2023-11-01 09:05] MED LIST changes: +METFORMIN ER G500 MG PO
[2023-11-01 09:45] VITALS: BP 181/60
[2023-11-01] MEDS ORDERED: Heparin Sodium 1000 Units/ML 10ML MDV ONE ×2 (10:30→12:23)
[2023-11-01] MEDS ORDERED: Nitroglycerin 2 MG/20 ML BTL ONE (10:30)
[2023-11-01] MEDS ORDERED: NS 1,000 ML IV ONE ×2 (10:30→12:08)
[2023-11-01] MEDS ORDERED: NS 250 ML IV ONE (10:30)
[2023-11-01] MEDS ORDERED: FentaNYL Citrate 50 MCG/ML 2 ML Injection ONE (12:23)
[2023-11-01] MEDS ORDERED: Midazolam HCl 1MG / ML 2ML Vial ONE (12:23)
[2023-11-01] MEDS ORDERED: HydrALAZINE HCl 20 MG / ML 1ML Vial ONE (13:09)
--- NOTE | 2023-11-01 13:45 | NUR ---
PATIENT ARRIVED TO RECOVERY ROOM WITH HOB FLAT. R GROIN SITE C/D/I SOFT/NONTENDER, NO EVIDENCE OF BLEEDING. VSS ON RA
--- NOTE | 2023-11-01 14:00 | NUR ---
PATIENT HOB ELEVATED 30 DEGREES. PATIENT TOLERATING PO INTAKE WELL. R GROIN SITE C/D/I SOFT/NONTENDER, NO EVIDENCE OF BLEEDING. VSS ON RA. NEW PRESCRIPTION CALLED TO PHARMACY
[2023-11-01 14:22] VITALS: BP 177/81
[2023-11-01 14:31] VITALS: BP 181/69
--- NOTE | 2023-11-01 14:38 | NUR ---
PATIENT AMBULATING TO RESTROOM WITH ASSISTANCE WITHOUT DIFFCICULY. R GROIN SITE C/D/I SOFT/NONTENDER, NO EVIDENCE OF BLEEDING. VSS ON RA.
[2023-11-01 14:45] VITALS: BP 159/75
[2023-11-01 15:00] VITALS: BP 172/61
--- NOTE | 2023-11-01 15:00 | NUR ---
PATIENT RESTING COMFORTABLY IN BED. R GROIN SITE C/D/I SOFT/NONTENDER, NO EVIDENCE OF BLEEDING. VSS ON RA. PATIENT DENYING ANY PAIN.
[2023-11-01 15:15] VITALS: BP 160/63
--- NOTE | 2023-11-01 15:30 | NUR ---
DISCHARGE INSTRUCTIONS REVIEWED WITH PATIENT AND SON AT BEDSIDE. ALL QUESTIONS WERE ANSWERED. R GROIN SITE C/D/I SOFT/NONTENDER, NO EVIDENCE OF BLEEDING. MD PRESENT AT BEDSIDE DISCUSSING WITH PATIENT PROCEDURE.
--- NOTE | 2023-11-01 15:35 | NUR ---
PATIENT DISCHARGED HOME AT THIS TIME. ALL PATIENT BELONGINGS AND PAPERWORK LEFT WITH PATIENT. NEW MEDICATION CALLED TO PREFERRED PHARMACY. R SOLEDAD SITE C/D/I SOFT/NONTENDER, NO EVIDENCE OF BLEEDING. VSS ON RA. PIV REMOVED WITHOUT DIFFICULTY, CATHETER INTACT. PATIENT WHEELED TO HOSPITAL ENTRANCE AND SON ABLE TO PROVIDE TRANSPORTATION HOME.
--- NOTE | 2023-11-01 15:40 | NUR ---
MINIMAL TRACK OOZING NOTED FROM R SOLEDAD SITE. HOB FLAT. SMALL PRESSURE APPLIED. AREA SOFT/NONTENDER. VSS ON RA. WILL CONTINUE TO MONITOR
--- NOTE | 2023-11-01 16:00 | NUR ---
SMALL PRESSURE DRESSING APPLIED TO R GROIN AREA. AREA SOFT/NONTENDER, WITH SOME OOZING AMOUNT OF BLOOD. WILL CONTINUE TO MONITOR. VSS ON RA.
[2023-11-01] MEDS ORDERED: Norco 5-325 Ta1 EACH PO (16:23)
== END 2023-11-01 16:51 | disposition home or self-care (01) ==
LOC: MHTC 09:05
PROC: 047N3ZZ Dilation of Left Popliteal Artery, Percutaneous Approach (ICD-10-PCS; principal; 2023-11-01)
DX: E11.51 Type 2 diabetes mellitus with diabetic peripheral angiopathy without gangrene (principal); I10 Essential (primary) hypertension; I48.19 Other persistent atrial fibrillation; E11.40 Type 2 diabetes mellitus with diabetic neuropathy, unspecified; J44.9 Chronic obstructive pulmonary disease, unspecified; Z79.01 Long term (current) use of anticoagulants; I25.10 Atherosclerotic heart disease of native coronary artery without angina pectoris; Z88.7 Allergy status to serum and vaccine; Z88.8 Allergy status to other drugs, medicaments and biological substances; Z79.899 Other long term (current) drug therapy; Z79.82 Long term (current) use of aspirin; Z79.84 Long term (current) use of oral hypoglycemic drugs
CPT/HCPCS: 75625; 75716; 75774; 76937; 99152; 99153; C1725; C1760; C1769; C1887; C1894; C2623; C9764; J0360; J1644; J2250; J3010; J7030; J7050; Q9967

== ENCOUNTER 2023-11-20 07:29 | Emergency (ER) | payer MEDICARE, OTHER ==
[~2023-11-20] VITALS: Ht 188 cm; Wt 104.3 kg
[~2023-11-20 07:29] MED LIST changes: +Norco 5-325 Ta1 EACH PO
[2023-11-20 09:22] LABS: Influenza A, PCR NEGATIVE (NEGATIVE); Influenza B, PCR NEGATIVE (NEGATIVE); Resp Syncytial Virus, PCR NEGATIVE (NEGATIVE); SARS-Cov-2 (COVID-19) PCR, MMC NEGATIVE (NEGATIVE)
[2023-11-20] MEDS ORDERED: Dexamethasone Sod Phos 10 MG/ML 1ML VIAL PO ONE (11:10)
[2023-11-20] MEDS ORDERED: AMOXICILLI250 MG/51 PO (11:14)
[2023-11-20 11:35] VITALS: BP 159/68
== END 2023-11-20 11:35 | disposition home or self-care (01) ==
LOC: ER 07:29
PROVIDERS: Emergency Medicine
DX: J02.9 Acute pharyngitis, unspecified (principal); I10 Essential (primary) hypertension; E11.51 Type 2 diabetes mellitus with diabetic peripheral angiopathy without gangrene; J44.9 Chronic obstructive pulmonary disease, unspecified; Z88.7 Allergy status to serum and vaccine; Z91.048 Other nonmedicinal substance allergy status; Z88.8 Allergy status to other drugs, medicaments and biological substances; Z79.82 Long term (current) use of aspirin; Z79.51 Long term (current) use of inhaled steroids; Z79.84 Long term (current) use of oral hypoglycemic drugs; Z79.02 Long term (current) use of antithrombotics/antiplatelets; Z79.899 Other long term (current) drug therapy
CPT/HCPCS: 0241U; 70491; 87081; 87430; 99283-25; J1100; Q9967

== ENCOUNTER → 2023-12-04 | Outpatient (CLI) | payer MEDICARE, OTHER ==
[~2023-12-04] MED LIST changes: +AMOXICILLI250 MG/51 PO
== END | disposition home or self-care (01) ==
LOC: LAB SHORT 12:08 → LAB 12:08
DX: L57.0 Actinic keratosis (principal)
CPT/HCPCS: 88305; 88312

== ENCOUNTER 2024-01-08 10:51 | Day surgery (SDC) | payer MEDICARE, OTHER ==
[~2024-01-08] VITALS: Ht 185.4 cm; Wt 110.0 kg
[2024-01-08 11:50] VITALS: BP 153/55
[2024-01-08] MEDS ORDERED: NS 250 ML IV ONE (12:41)
[2024-01-08] MEDS ORDERED: NS 1,000 ML IV ONE (12:42)
[2024-01-08] MEDS ORDERED: Heparin Sodium 1000 Units/ML 10ML MDV ONE (12:42)
[2024-01-08] MEDS ORDERED: Midazolam HCl 1MG / ML 2ML Vial ONE (12:59)
[2024-01-08] MEDS ORDERED: FentaNYL Citrate 50 MCG/ML 2 ML Injection ONE (12:59)
[2024-01-08 14:21] VITALS: BP 165/61
[2024-01-08 14:30] VITALS: BP 141/58
[2024-01-08 14:45] VITALS: BP 146/54
[2024-01-08 15:00] VITALS: BP 153/56
--- NOTE | 2024-01-08 16:16 | NUR ---
PT AND SON VERBALIZE UNDERSTANDING WRITTEN AND VERBAL INSTRUCTIONS. DENIES QUESTIONS. PT DRESSES SELF WITHOUT DIFF. PT IV DC'D. CATH INTACT. PRESSURE DSG APPLIED. NO BLEEDING NOTED. PT L FEMORAL SITE REMAINS C/D/I. NO BLEEDING OR HEMATOMA NOTED. VSS. PT WILL DC TO HOME VIA SON BY WC.
== END 2024-01-08 16:25 | disposition home or self-care (01) ==
LOC: MHTC 10:51
DX: E11.51 Type 2 diabetes mellitus with diabetic peripheral angiopathy without gangrene (principal); I70.223 Atherosclerosis of native arteries of extremities with rest pain, bilateral legs; I48.19 Other persistent atrial fibrillation; J44.9 Chronic obstructive pulmonary disease, unspecified; I25.10 Atherosclerotic heart disease of native coronary artery without angina pectoris; K21.9 Gastro-esophageal reflux disease without esophagitis; E11.40 Type 2 diabetes mellitus with diabetic neuropathy, unspecified; I10 Essential (primary) hypertension; Z79.01 Long term (current) use of anticoagulants; Z79.84 Long term (current) use of oral hypoglycemic drugs; Z79.899 Other long term (current) drug therapy; Z88.8 Allergy status to other drugs, medicaments and biological substances
CPT/HCPCS: 75625; 75716; 75774; 76937; 99152; 99153; C1725; C1760; C1769; C1887; C1894; C9764; J1644; J2250; J3010; J7030; J7050; Q9967

== ENCOUNTER 2024-02-16 14:50 | Emergency (ER) | payer MEDICARE, OTHER ==
[~2024-02-16] VITALS: Ht 188 cm; Wt 93.9 kg
[2024-02-16 16:29] LABS: Source, Urine Clean Catch
[2024-02-16 16:31] LABS: Appearance, Urine Clear (Clear); Bilirubin, Urine Neg (Neg); Blood, Urine Neg (Neg); Color, Urine Yellow (P-Yellow); Glucose Qualitative, Urine Neg (Neg); Ketones, Urine Neg (Neg); Leukocyte Esterase, Urine Neg (Neg); Nitrite, Urine Neg (Neg); Protein, Urine Neg (Neg); Specific Gravity, Urine 1.005 (1.003-1.022); Urobilinogen, Urine NORM (Normal)
[2024-02-16 16:33] LABS: BASOPHILS ABSOLUTE AUTO 0.13 K/mm3 (0.00-0.23); BASOPHILS PERCENT AUTO 2 % (0-2); EOSINOPHILS ABSOLUTE AUTO 0.21 K/mm3 (0.00-0.68); EOSINOPHILS PERCENT AUTO 3 % (0-6); Hemoglobin 13.5 g/dL (13.5-17.5); IMMATURE GRAN ABSOLUTE AUTO 0.01 K/mm3 (0.00-0.10); IMMATURE GRAN PERCENT AUTO 0 % (0-1); LYMPHOCYTES ABSOLUTE AUTO 1.31 K/mm3 (0.84-5.20); LYMPHOCYTES PERCENT AUTO 16 % (21-46); MONOCYTES ABSOLUTE AUTO 1.15 K/mm3 (0.16-1.47); MONOCYTES PERCENT AUTO 14 % (4-13); Mean Corpuscular HGB 31.3 pg (26.0-34.0); Mean Corpuscular HGB Conc 32.9 g/dL (31.5-36.5); Mean Corpuscular Volume 95 fL (80-100); Mean Platelet Volume 9.3 fL (9.1-12.4); NEUTROPHILS ABSOLUTE AUTO 5.53 K/mm3 (1.96-9.15); NEUTROPHILS PERCENT AUTO 66 % (41-73); Platelet Count 278 K/mm3 (150-400); RDW Coefficient Variation 13.5 % (11.7-14.2); RDW Standard Deviation 47.4 fL (35.1-46.3); Red Blood Cell Count 4.32 M/mm3 (4.30-5.90); White Blood Cell Count 8.34 K/mm3 (4.00-11.30)
[2024-02-16 16:59] LABS: Albumin, Blood 4.2 g/dL (3.4-5.0); Albumin/Globulin Ratio 1.1 (0.8-1.8); Bilirubin, Total 0.9 mg/dL (0.1-1.0); Calcium, Blood 9.5 mg/dL (8.5-10.1); Creatinine, Blood 1.87 mg/dL (0.60-1.20); Globulin, Blood 3.8 g/dL (2.2-4.0); Potassium, Blood 4.1 mmol/L (3.5-5.5)
[2024-02-16] MEDS ORDERED: NS 250 ML IV ONE (17:05)
[2024-02-16] MEDS ORDERED: Tamsulosin HCl 0.4 MG Cap PO ONE (17:05)
[2024-02-16] MEDS ORDERED: Flomax0.4 MG PO (17:35)
[2024-02-16 17:40] VITALS: BP 172/72
== END 2024-02-16 17:46 | disposition home or self-care (01) ==
LOC: ER 14:50
PROVIDERS: Physician Assistant; Student in an Organized Health Care Education/Training Program
DX: N40.1 Benign prostatic hyperplasia with lower urinary tract symptoms (principal); R39.16 Straining to void; I10 Essential (primary) hypertension; E11.9 Type 2 diabetes mellitus without complications; J44.9 Chronic obstructive pulmonary disease, unspecified; Z79.02 Long term (current) use of antithrombotics/antiplatelets; Z79.84 Long term (current) use of oral hypoglycemic drugs; Z79.51 Long term (current) use of inhaled steroids; Z79.899 Other long term (current) drug therapy; Z88.7 Allergy status to serum and vaccine; Z88.8 Allergy status to other drugs, medicaments and biological substances; Z91.048 Other nonmedicinal substance allergy status
CPT/HCPCS: 51798; 80053; 81003; 85025; 93005; 93010; 99283-25; A9270; G0103; J7030

== ENCOUNTER 2024-02-26 13:36 | Emergency (ER) | payer MEDICARE, OTHER ==
[~2024-02-26] VITALS: Ht 188 cm; Wt 89.8 kg
[~2024-02-26 13:36] MED LIST changes: +Flomax0.4 MG PO
[2024-02-26 14:50] LABS: BASOPHILS ABSOLUTE AUTO 0.07 K/mm3 (0.00-0.23); BASOPHILS PERCENT AUTO 1 % (0-2); EOSINOPHILS PERCENT AUTO 2 % (0-6); Hematocrit 41.4 % (37.0-53.0); Hemoglobin 13.9 g/dL (13.5-17.5); IMMATURE GRAN ABSOLUTE AUTO 0.02 K/mm3 (0.00-0.10); IMMATURE GRAN PERCENT AUTO 0 % (0-1); LYMPHOCYTES ABSOLUTE AUTO 0.91 K/mm3 (0.84-5.20); LYMPHOCYTES PERCENT AUTO 16 % (21-46); MONOCYTES ABSOLUTE AUTO 0.79 K/mm3 (0.16-1.47); MONOCYTES PERCENT AUTO 14 % (4-13); Mean Corpuscular HGB 31.4 pg (26.0-34.0); Mean Corpuscular HGB Conc 33.6 g/dL (31.5-36.5); Mean Corpuscular Volume 94 fL (80-100); Mean Platelet Volume 10.3 fL (9.1-12.4); NEUTROPHILS ABSOLUTE AUTO 3.95 K/mm3 (1.96-9.15); NEUTROPHILS PERCENT AUTO 68 % (41-73); Platelet Count 226 K/mm3 (150-400); RDW Coefficient Variation 13.4 % (11.7-14.2); RDW Standard Deviation 45.8 fL (35.1-46.3); Red Blood Cell Count 4.43 M/mm3 (4.30-5.90); White Blood Cell Count 5.84 K/mm3 (4.00-11.30)
[2024-02-26 15:13] LABS: Albumin, Blood 3.6 g/dL (3.4-5.0); Albumin/Globulin Ratio 0.9 (0.8-1.8); Bilirubin, Total 0.9 mg/dL (0.1-1.0); Bun/Creatinine Ratio 20.7 (12.0-20.0); Calcium, Blood 9.2 mg/dL (8.5-10.1); Creatinine, Blood 1.45 mg/dL (0.60-1.20); Potassium, Blood 4.3 mmol/L (3.5-5.5); Total Protein, Blood 7.6 g/dL (6.4-8.2)
[2024-02-26] MEDS ORDERED: FentaNYL Citrate 50 MCG/ML 2 ML Injection IV ONE (17:30)
[2024-02-26 17:57] LABS: Magnesium, Blood 1.7 mg/dL (1.6-2.4)
[2024-02-26 17:58] LABS: Thyroid Stimulating Hormone 0.536 uIU/mL (0.360-4.800)
[2024-02-26 18:35] LABS: Influenza A, PCR NEGATIVE (NEGATIVE); Influenza B, PCR NEGATIVE (NEGATIVE); Resp Syncytial Virus, PCR NEGATIVE (NEGATIVE)
[2024-02-26 18:39] LABS: SARS-Cov-2 (COVID-19) PCR, MMC POSITIVE (NEGATIVE)
[2024-02-26 21:40] VITALS: BP 136/70
== END 2024-02-26 22:42 | disposition home or self-care (01) ==
LOC: ER 13:36
PROVIDERS: Emergency Medicine; Student in an Organized Health Care Education/Training Program
DX: M48.56XA Collapsed vertebra, not elsewhere classified, lumbar region, initial encounter for fracture (principal); U07.1 COVID-19; I10 Essential (primary) hypertension; E11.9 Type 2 diabetes mellitus without complications; J44.9 Chronic obstructive pulmonary disease, unspecified; Z88.7 Allergy status to serum and vaccine; Z88.8 Allergy status to other drugs, medicaments and biological substances; Z91.09 Other allergy status, other than to drugs and biological substances; Z79.899 Other long term (current) drug therapy
CPT/HCPCS: 0241U; 70450; 72131; 80053; 83735; 84443; 84484; 85025; 93005; 93010; J3010

== ENCOUNTER → 2024-07-06 | Outpatient (CLI) | payer MEDICARE, OTHER | LOC: LAB SHORT 15:33 → LAB 15:33 | DX: M79.641 Pain in right hand (principal) | CPT/HCPCS: 84550; 85651 ==

== ENCOUNTER → 2024-08-25 | Outpatient (CLI) | payer MEDICARE, OTHER ==
[2024-08-25 17:31] LABS: BASOPHILS ABSOLUTE AUTO 0.08 K/mm3 (0.00-0.23); BASOPHILS PERCENT AUTO 1 % (0-2); EOSINOPHILS ABSOLUTE AUTO 0.14 K/mm3 (0.00-0.68); EOSINOPHILS PERCENT AUTO 2 % (0-6); Hematocrit 39.3 % (37.0-53.0); Hemoglobin 13.2 g/dL (13.5-17.5); IMMATURE GRAN ABSOLUTE AUTO 0.01 K/mm3 (0.00-0.10); IMMATURE GRAN PERCENT AUTO 0 % (0-1); LYMPHOCYTES ABSOLUTE AUTO 0.76 K/mm3 (0.84-5.20); LYMPHOCYTES PERCENT AUTO 12 % (21-46); MONOCYTES ABSOLUTE AUTO 0.91 K/mm3 (0.16-1.47); MONOCYTES PERCENT AUTO 15 % (4-13); Mean Corpuscular HGB 31.6 pg (26.0-34.0); Mean Corpuscular HGB Conc 33.6 g/dL (31.5-36.5); Mean Corpuscular Volume 94 fL (80-100); Mean Platelet Volume 10.2 fL (9.1-12.4); NEUTROPHILS ABSOLUTE AUTO 4.34 K/mm3 (1.96-9.15); NEUTROPHILS PERCENT AUTO 70 % (41-73); Platelet Count 222 K/mm3 (150-400); RDW Coefficient Variation 13.4 % (11.7-14.2); RDW Standard Deviation 46.5 fL (35.1-46.3); Red Blood Cell Count 4.18 M/mm3 (4.30-5.90); White Blood Cell Count 6.24 K/mm3 (4.00-11.30)
[2024-08-25 17:41] LABS: Albumin, Blood 3.9 g/dL (3.4-5.0); Albumin/Globulin Ratio 1.1 (0.8-1.8); Bilirubin, Total 0.7 mg/dL (0.1-1.0); Bun/Creatinine Ratio 33.3 (12.0-20.0); Calcium, Blood 9.4 mg/dL (8.5-10.1); Creatinine, Blood 1.74 mg/dL (0.60-1.20); Globulin, Blood 3.4 g/dL (2.2-4.0); Potassium, Blood 4.4 mmol/L (3.5-5.5); Total Protein, Blood 7.3 g/dL (6.4-8.2); Uric Acid, Blood 10.7 mg/dL (3.5-7.2)
[2024-08-26 16:24] LABS: RHEUMATOID FACTOR <10 IU/mL (0-14)
== END ==
LOC: LAB SHORT 16:06 → LAB 16:06
PROVIDERS: Nurse Practitioner Family
DX: I10 Essential (primary) hypertension (principal); M10.9 Gout, unspecified; M25.50 Pain in unspecified joint
CPT/HCPCS: 80053; 84550; 85025; 85651; 86431

== ENCOUNTER → 2025-06-12 | Outpatient (CLI) | payer MEDICARE, OTHER ==
[2025-06-12 16:17] LABS: Creatinine, Urine Random 49.1 mg/dL (27.00-270.00); Microalb/Creat Ratio UR, Rand 12.648 mg/g (0.000-30.000); Microalbumin, Random Urine 6.21 mg/L (0.000-20.000)
== END ==
LOC: LAB 12:45 → LAB SHORT 12:45
PROVIDERS: Nurse Practitioner Family
DX: E11.42 Type 2 diabetes mellitus with diabetic polyneuropathy (principal)
CPT/HCPCS: 82043; 82570

== ENCOUNTER → 2025-07-13 | Outpatient (CLI) | payer MEDICARE, OTHER ==
[2025-07-13 19:48] LABS: BASOPHILS ABSOLUTE AUTO 0.06 K/mm3 (0.00-0.23); BASOPHILS PERCENT AUTO 1 % (0-2); EOSINOPHILS ABSOLUTE AUTO 0.10 K/mm3 (0.00-0.68); EOSINOPHILS PERCENT AUTO 2 % (0-6); Hematocrit 38.1 % (37.0-53.0); Hemoglobin 12.7 g/dL (13.5-17.5); IMMATURE GRAN ABSOLUTE AUTO 0.02 K/mm3 (0.00-0.10); IMMATURE GRAN PERCENT AUTO 0 % (0-1); LYMPHOCYTES ABSOLUTE AUTO 0.73 K/mm3 (0.84-5.20); LYMPHOCYTES PERCENT AUTO 12 % (21-46); MONOCYTES ABSOLUTE AUTO 0.75 K/mm3 (0.16-1.47); MONOCYTES PERCENT AUTO 12 % (4-13); Mean Corpuscular HGB Conc 33.3 g/dL (31.5-36.5); Mean Corpuscular Volume 96 fL (80-100); NEUTROPHILS ABSOLUTE AUTO 4.56 K/mm3 (1.96-9.15); NEUTROPHILS PERCENT AUTO 73 % (41-73); NRBC ABSOLUTE 0.00 K/mm3 (0.00-0.02); NRBC Auto 0.0 /100 WBC (0.0-0.2); Platelet Count 213 K/mm3 (150-400); RDW Coefficient Variation 13.5 % (11.7-14.2); RDW Standard Deviation 48.2 fL (35.1-46.3)
[2025-07-13 20:23] LABS: Alanine Aminotransfer (ALT/SGP 26.0 U/L (12-78); Albumin, Blood 3.8 g/dL (3.4-5.0); Albumin/Globulin Ratio 1.1 (0.8-1.8); Anion Gap 10.0 mmol/L (3-11); Aspartate Aminotrans (AST/SGOT 29.0 U/L (12-37); Bilirubin, Total 0.5 mg/dL (0.1-1.0); Blood Urea Nitrogen 47.0 mg/dL (8-24); CO2, Blood 29.0 mmol/L (21-32); Calcium, Blood 9.2 mg/dL (8.5-10.1); Chloride, Blood 99.0 mmol/L (98-108); Creatinine, Blood 2.1 mg/dL (0.60-1.20); Ferritin, Serum 53.0 ng/mL (26-388); Globulin, Blood 3.4 g/dL (2.2-4.0); Glucose, Blood 142.0 mg/dL (70-99); Potassium, Blood 4.5 mmol/L (3.5-5.5); Sodium, Blood 133.0 mmol/L (136-145); Total Iron Binding Capacity 285.0 ug/dL (250-450); Total Protein, Blood 7.2 g/dL (6.4-8.2)
== END ==
LOC: LAB SHORT 15:50 → LAB 15:50
PROVIDERS: Nurse Practitioner Family
DX: D64.9 Anemia, unspecified (principal); E11.42 Type 2 diabetes mellitus with diabetic polyneuropathy; Z79.899 Other long term (current) drug therapy
CPT/HCPCS: 80053; 82607; 82728; 82746; 83036; 83540; 83550; 85025